=== PATIENT | male | born 1960 | race Native Hawaiian/Other Pacific Islander ===

== ENCOUNTER → 2019-11-02 | Outpatient (CLI) | payer BC ==
[~2019-11-02] VITALS: Ht 167.6 cm; Wt 97.5 kg
[~2019-11-02] MED LIST: B COMPLEX1 EACH PO; CIALIS5 MG PO; IBUPROFEN200 MG PO; LEVO-T50 MCG PO; VALTREX 500 MG500 M1 PO
[2019-11-02 13:27] LABS: HEMATOCRIT 43.4 % (42.0-52.0); HEMOGLOBIN 14.5 gm/dL (14.0-18.0); MCHC 33.5 g/dL (28.0-37.0); MCV 95.3 fL (80.0-100.0); RBC 4.55 mil/uL (4.50-6.00); RDW 14.2 % (10.5-14.5); URINE BILIRUBIN NEGATIVE (Negative); URINE BLOOD NEGATIVE (Negative); URINE CLARITY CLEAR; URINE COLOR YELLOW; URINE GLUCOSE-RANDOM* NEGATIVE (Negative); URINE KETONES NEGATIVE (Negative); URINE LEUKOCYTES-REFLEX NEGATIVE (Negative); URINE NITRITE-REFLEX NEGATIVE (Negative); URINE PROTEIN (DIPSTICK) NEGATIVE (Negative); URINE UROBILINOGEN 0.2 E.U./dl (0.2-1.0); WBC 4.9 thou/uL (4.0-11.0)
[2019-11-02 13:38] LABS: PROTIME 10.1 Seconds (9.3-11.4)
[2019-11-02 13:41] LABS: ALBUMIN 3.7 g/dL (3.4-5.0); CALCIUM 8.6 mg/dL (8.5-10.1); POTASSIUM 4.1 mmol/L (3.5-5.1)
== END ==
LOC: PAC 13:00 → OR 11-19 10:08 → EDSTATUS 11-19 13:38 → OR 11-19 17:59
PROVIDERS: Orthopaedic Surgery
DX: M16.11 Unilateral primary osteoarthritis, right hip (principal)